=== PATIENT | male | born 1975 | race Caucasian/White ===

== ENCOUNTER 2025-06-03 14:47 | Emergency (ER) | payer MEDICAID ==
[~2025-06-03] VITALS: Ht 190.5 cm; Wt 100.0 kg
[2025-06-03 14:55] VITALS: O2SAT 96
[2025-06-03] MEDS ORDERED: BO1 TP (16:48)
[2025-06-03] MEDS ORDERED: BACITRACIN ZINC OINT UDPKT TOP ONE (17:00)
[2025-06-03 17:11] VITALS: BP 120/70; PULSE 80; RESP 15; TEMP 36.8; O2SAT 99
== END 2025-06-03 17:13 | disposition home or self-care (01) ==
LOC: ER 14:47
DX: T23.172A Burn of first degree of left wrist, initial encounter (principal); T23.171A Burn of first degree of right wrist, initial encounter; T30.0 Burn of unspecified body region, unspecified degree; X58.XXXA Exposure to other specified factors, initial encounter; Y93.89 Activity, other specified; Y92.89 Other specified places as the place of occurrence of the external cause; Y99.8 Other external cause status
CPT/HCPCS: 99282